=== PATIENT | female | born 1965 | race Caucasian/White ===

== ENCOUNTER → 2016-09-30 | Outpatient (CLI) | payer BC ==
[2016-09-30 09:50] LABS: Basophils % (A) 0 %; CHCM 33.3; Eosinophils # (A) 0.1 k/uL (0-0.7); Eosinophils % (A) 2 %; HCT 43.5 % (34.0-46.0); HDW 2.34; HGB 14.3 gm/dL (11.4-16.0); Luc % (Auto) 2; Lymphocytes % (A) 24 %; MCH 29.7 pg (25.0-35.0); MCHC 32.8 g/dL (31.0-37.0); MCV 90.4 fL (80.0-100.0); Mean Platelet Volume 7.4; Monocytes # (A) 0.3 k/uL (0-1.0); Monocytes % (A) 8 %; Neutrophils # (A) 2.7 k/uL (1.3-7.7); Neutrophils % (A) 64 %; RBC 4.81 m/uL (3.80-5.40); WBC 4.3 k/uL (3.8-10.6); WBC (Perox) 4.28
[2016-09-30 10:18] LABS: ALT 35 U/L (9-52); AST 25 U/L (14-36); Alkaline Phosphatase 103 U/L (38-126); Anion Gap 12 mmol/L; Blood Urea Nitrogen 13 mg/dL (7-17); Calcium 9.6 mg/dL (8.4-10.2); Carbon Dioxide 26 mmol/L (22-30); Chloride 102 mmol/L (98-107); Glucose 94 mg/dL (74-99); Non-African American GFR(MDRD) >60 (>60 ml/min/1.73 sqM); Potassium 4.8 mmol/L (3.5-5.1); Sodium 140 mmol/L (137-145); Total Bilirubin 0.4 mg/dL (0.2-1.3); Total Protein 7.4 g/dL (6.3-8.2)
== END | disposition home or self-care (01) ==
LOC: LABWHC1 09:11
PROVIDERS: ATTEND Internal Medicine Endocrinology, Diabetes & Metabolism
DX: E55.9 Vitamin D deficiency, unspecified (principal); M85.9 Disorder of bone density and structure, unspecified
CPT/HCPCS: 36415; 80053; 82306; 82523; 85025

== ENCOUNTER → 2017-10-29 | Outpatient (CLI) | payer BC, OTHER ==
[2017-10-29 11:53] LABS: Basophils % (A) 0 %; Eosinophils # (A) 0.1 k/uL (0-0.7); Eosinophils % (A) 2 %; HGB 13.6 gm/dL (11.4-16.0); Lymphocytes # (A) 1.1 k/uL (1.0-4.8); Lymphocytes % (A) 22 %; MCH 28.6 pg (25.0-35.0); MCV 92.4 fL (80.0-100.0); Mean Platelet Volume 7.7; Monocytes # (A) 0.4 k/uL (0-1.0); Monocytes % (A) 7 %; Neutrophils # (A) 3.5 k/uL (1.3-7.7); Neutrophils % (A) 67 %; Platelet Count 208 k/uL (150-450); RBC 4.76 m/uL (3.80-5.40); RDW 13.4 % (11.5-15.5); WBC 5.2 k/uL (3.8-10.6)
[2017-10-29 12:00] LABS: ALT 27 U/L (9-52); AST 28 U/L (14-36); Albumin 4.3 g/dL (3.5-5.0); Alkaline Phosphatase 109 U/L (38-126); Anion Gap 11 mmol/L; Blood Urea Nitrogen 14 mg/dL (7-17); Calcium 9.6 mg/dL (8.4-10.2); Carbon Dioxide 27 mmol/L (22-30); Chloride 103 mmol/L (98-107); Cholesterol 231 mg/dL (<200); Glucose 90 mg/dL (74-99); HDL Cholesterol 68 mg/dL (40-60); LDL Cholesterol,Calculated 137 mg/dL (0-99); Potassium 4.5 mmol/L (3.5-5.1); Sodium 141 mmol/L (137-145); Total Bilirubin 0.3 mg/dL (0.2-1.3); Total Protein 7.3 g/dL (6.3-8.2); Triglycerides 131 mg/dL (<150)
[2017-10-29 16:47] LABS: Vitamin D 25 Hydroxy 23.9 ng/mL (30.0-100.0)
[2017-10-29 17:07] LABS: Hepatitis C IgG Antibody Non-Reactive (Non-Reactive)
== END | disposition home or self-care (01) ==
LOC: LABWHC1 11:21
PROVIDERS: ATTEND Internal Medicine Endocrinology, Diabetes & Metabolism
DX: Z00.00 Encounter for general adult medical examination without abnormal findings (principal); E55.9 Vitamin D deficiency, unspecified; M81.8 Other osteoporosis without current pathological fracture; Z13.9 Encounter for screening, unspecified
CPT/HCPCS: 36415; 80053; 80061; 82306; 85025; 86803

== ENCOUNTER → 2018-11-15 | Outpatient (CLI) | payer BC, OTHER ==
--- NOTE | 2018-11-16 03:40 | CT ---
EXAMINATION TYPE: CT chest wo con DATE OF EXAM: 11/15/2018 COMPARISON: Correlation old spine MRI 08/04/2010 HISTORY: 53-year-old female cough, SOB, asthma, interstitial pulmonary disease TECHNIQUE: Contiguous axial scanning of the chest without IV contrast. Coronal and sagittal reconstru ctions performed. CT DLP: 691 mGycm Automated exposure control for dose reduction was used. FINDINGS: There is a nodule within the lateral right breast measuring 1 cm and a couple nodules in the left claudia ast measuring 1.3 and 0.6 cm. Further mammographic evaluation is recommended. Heart normal size without pericardial effusion. Minimal coronary vessel calcifications are present. Borderline ectasia ascending aorta 3.5 cm. There is variant direct takeoff of the left vertebral bhavesh ry directly from the aortic arch and mild atherosclerotic arch calcifications. Evaluation of the lungs shows some strandy atelectasis peripheral left base and inferior lingula. The re are trace subpleural reticulations within the right middle lobe. No consolidation or pleural effus ion. Visualized upper abdomen shows no gross abnormality. Bones: Some scattered prominent endplate Schmorl's nodes are demonstrated. Focal sclerosis within the T3 vertebral body has a nonaggressive appearance and had some corresponding abnormality on the patie nt's old MRI of 08/04/2010 suggesting a hemangioma. IMPRESSION: 1. TRACE SUBPLEURAL RETICULATIONS IN THE RIGHT MIDDLE LOBE COULD REPRESENT SOME MINIMAL FIBROTIC COPELAND GES/INTERSTITIAL SCARRING. NO OTHER FINDINGS OF INTERSTITIAL LUNG DISEASE ELSEWHERE IN THE LUNGS. 2. BILATERAL BREAST NODULARITY. RECOMMEND DIAGNOSTIC MAMMOGRAPHIC EVALUATION IF THE PATIENT IS NOT UN DERGOING ROUTINE SCREENING.
== END | disposition home or self-care (01) ==
LOC: RADCTMAIN 16:46
PROVIDERS: ATTEND Preventive Medicine Preventive Medicine/Occupational Environmental Medicine
DX: J84.9 Interstitial pulmonary disease, unspecified (principal)
CPT/HCPCS: 71250

== ENCOUNTER → 2018-12-04 | Outpatient (CLI) | payer BC, OTHER ==
[2018-12-04 15:32] LABS: Basophils % (A) 0 %; Eosinophils # (A) 0.1 k/uL (0-0.7); Eosinophils % (A) 1 %; HGB 13.3 gm/dL (11.4-16.0); Lymphocytes % (A) 18 %; MCH 29.4 pg (25.0-35.0); MCHC 32.4 g/dL (31.0-37.0); MCV 90.7 fL (80.0-100.0); Mean Platelet Volume 7.6; Monocytes # (A) 0.4 k/uL (0-1.0); Monocytes % (A) 7 %; Neutrophils # (A) 4.1 k/uL (1.3-7.7); Neutrophils % (A) 72 %; Platelet Count 182 k/uL (150-450); RBC 4.52 m/uL (3.80-5.40); RDW 14.9 % (11.5-15.5); WBC 5.7 k/uL (3.8-10.6)
[2018-12-04 15:43] LABS: Appearance,Urine Clear (Clear); Bilirubin,Urine Negative (Negative); Blood,Urine Trace (Negative); Color,Urine Light Yellow; Glucose,Urine (UA) Negative (Negative); Ketones,Urine Negative (Negative); Leukocyte Esterase,Urine Negative (Negative); Mucus,Urine Rare /hpf; Nitrite,Urine Negative (Negative); Protein,Urine Negative (Negative); RBC,Urine 2 /hpf (0-5); Squamous Epithelial Cell,Urine 1 /hpf (0-4); Urobilinogen,Urine <2.0 mg/dL (<2.0); WBC,Urine 2 /hpf (0-5)
[2018-12-04 23:37] LABS: Albumin 4.4 g/dL (3.80-4.90); Albumin/Globulin Ratio 2.32 (1.60-3.17); Anion Gap 9.9 mmol/L (4.00-12.00); Calcium 9.3 mg/dL (8.7-10.3); Carbon Dioxide 25.1 mmol/L (21.6-31.8); Globulin 1.9 g/dL (1.6-3.3); LDL Cholesterol,Calculated 133.8 mg/dL (0.0-131.0); Total Bilirubin 0.4 mg/dL (0.2-1.2); Total Protein 6.3 g/dL (6.2-8.2); VLDL Calculation 29.2 mg/dL (5.00-40.00)
== END ==
LOC: LABWHC1 14:44
PROVIDERS: ATTEND Internal Medicine Endocrinology, Diabetes & Metabolism
DX: Z00.00 Encounter for general adult medical examination without abnormal findings (principal); E55.9 Vitamin D deficiency, unspecified; M81.8 Other osteoporosis without current pathological fracture
CPT/HCPCS: 36415; 80053; 80061; 81001; 82306; 85025

== ENCOUNTER → 2020-03-31 | Outpatient (CLI) | payer BC, OTHER ==
[2020-03-31 21:33] LABS: African American GFR (CKD) 118.9 (60.0-200.0); Anion Gap 9.9 mmol/L (4.00-12.00); BUN/Creat Ratio 21.67 Ratio (12.00-20.00); Carbon Dioxide 24.1 mmol/L (21.6-31.8); Non-African American GFR(CKD) 102.6 (60.0-200.0); Potassium 4.7 mmol/L (3.5-5.5)
== END | disposition home or self-care (01) ==
LOC: LABWHC1 07:33
PROVIDERS: ATTEND Internal Medicine
DX: I25.10 Atherosclerotic heart disease of native coronary artery without angina pectoris (principal); I77.811 Abdominal aortic ectasia; M85.9 Disorder of bone density and structure, unspecified; E55.9 Vitamin D deficiency, unspecified
CPT/HCPCS: 36415; 80048; 82306; 82523; 93005

== ENCOUNTER → 2020-04-28 | Outpatient (CLI) | payer BC, OTHER ==
--- NOTE | 2020-04-28 16:21 | CT ---
EXAMINATION TYPE: CT chest wo con DATE OF EXAM: 04/28/2020 COMPARISON: 11/15/2018 HISTORY: Interstitial pulmonary disease. CT DLP: 966.5 mGycm, Automated exposure control for dose reduction was used. CONTRAST: None TECHNIQUE: Axial images were obtained at 1 mm thick sections at 10 mm intervals. This will limit po rtions of the examination which may not be visualized within the [id number]. Images were obtained in the prone and supine views. FINDINGS: Portion of the thyroid visualized is normal. No suspicious lung nodules or focal infiltrat es are present. Previously described reticulation in the right middle lobe is not evident. There is a small density felt to be related to some volume averaging anterior left lung. Nodules not excluded. Series 8 image 8. Volume averaging cannot be clearly ruled in or out with high-resolution C T chest because of volume averaging and skipped areas. No enlarged mediastinal or hilar adenopathy is evident. The ascending aorta diameter at the level o f the main pulmonary artery is 3.7 cm. The main pulmonary artery diameter at the bifurcation is 3.1 cm. Mild coronary artery calcifications present. Limited CT sections are obtained through the upper abdomen. Abdomen is essentially unremarkable. IMPRESSIONS: 1. Previously described nodularity within right middle lobe is not evident on the current exam. 2. Small nodule may be some volume averaging in the anterior left upper lung field. Standard CT chest could further evaluate this area.
== END | disposition home or self-care (01) ==
LOC: RADCTMAIN 15:31
PROVIDERS: ATTEND Preventive Medicine Preventive Medicine/Occupational Environmental Medicine
DX: J84.9 Interstitial pulmonary disease, unspecified (principal)
CPT/HCPCS: 71250

== ENCOUNTER 2020-12-02 14:34 | Emergency (ER) | payer BC, OTHER ==
[2020-12-02 17:04] VITALS: TEMP 98.4
[2020-12-02] MEDS ORDERED: HYDROcodone/APAP 5-325MG 1 EACH TAB PO STA (17:16)
--- NOTE | 2020-12-02 18:02 | XR ---
EXAMINATION TYPE: XR ankle complete RT DATE OF EXAM: 12/02/2020 COMPARISON: NONE HISTORY: Ankle pain TECHNIQUE: 3 views FINDINGS: There is transverse fracture of the distal fibula. There is lateral soft tissue swelling. T here is plantar calcaneal spurring. Ankle mortise is anatomic. IMPRESSION: Acute nondisplaced fracture of the lateral malleolus. Soft tissue swelling.
--- NOTE | 2020-12-02 18:21 | ED ---
Lower Extremity Injury HPI - General Chief Complaint: Extremity Injury, Lower Stated Complaint: RT ankle injury Time Seen by Provider: 12/02/20 17:06 Source: patient Mode of arrival: wheelchair Limitations: no limitations - History of Present Illness Initial Comments: 55-year-old female presents to the emergency department with chief complaint of an ankle fracture. Patient reports last night she was walking and had an inversion injury to the right ankle. States the pain is sharp, 7/10 and exacerbated with weightbearing and alleviated at rest. Reports early this morning she went to an urgent care and x-ray was obtained. Sometime afterwards they called her to advise her that she needs to go to emergency Department for splinting because she has an ankle fracture. She denies any numbness or tingling. Does report ecchymosis and swelling to the lateral malleolus of the right ankle. She does report a little bit of range of motion due to pain. Denies taking medication to alleviate the symptoms. - Related Data Home Medications Medication Instructions Recorded Confirmed Budesonide/Formoterol Fumarate 2 puff INHALATION RT-BID 08/24/16 12/02/20 [Symbicort 80-4.5 Mcg Inhaler] Montelukast [Singulair] 10 mg PO DAILY 08/24/16 12/02/20 Raloxifene [Evista] 60 mg PO DAILY 08/24/16 12/02/20 modafiniL [Provigil] 400 mg PO DAILY 08/24/16 12/02/20 Ascorbic Acid [Vitamin C] 1,000 mg PO DAILY 12/02/20 12/02/20 Ergocalciferol [Vitamin D2 (1250 1,250 mcg PO TREVINO 12/02/20 12/02/20 Mcg = 33791 Iu)] Rosuvastatin Calcium [Crestor] 5 mg PO Q48H 12/02/20 12/02/20 Vitamin B Complex 1 cap PO DAILY 12/02/20 12/02/20 Allergies Allergy/AdvReac Type Severity Reaction Status Date / Time cephalexin [From Keflex] AdvReac Rash/Hives Verified 12/02/20 17:37 Penicillins AdvReac Rash/Hives Verified 12/02/20 17:37 Review of Systems ROS Statement: Those systems with pertinent positive or pertinent negative responses have been documented in the HPI. ROS Other: All systems not noted in ROS Statement are negative. Past Medical History Past Medical History: Asthma, Cancer, Fibromyalgia Additional Past Medical History / Comment(s): Neuropathy; Narcolepsy; Breast CA History of Any Multi-Drug Resistant Organisms: None Reported Past Surgical History: Breast Surgery Additional Past Surgical History / Comment(s): Br Lumpectomy and Lymph node removal; Urethral enlargement; Mole removed L eyelid; Colonoscopies Past Anesthesia/Blood Transfusion Reactions: No Reported Reaction Past Psychological History: Bipolar Smoking Status: Never smoker Past Alcohol Use History: Occasional Past Drug Use History: None Reported - Past Family History Mother Family Medical History: Cancer General Exam Limitations: no limitations General appearance: alert, in no apparent distress, obese Head exam: Present: atraumatic, normocephalic, normal inspection Eye exam: Present: normal appearance, PERRL, EOMI Pupils: Present: normal accommodation ENT exam: Present: normal exam, normal oropharynx, mucous membranes moist, TM's normal bilaterally, normal external ear exam Neck exam: Present: normal inspection, full ROM. Absent: tenderness Respiratory exam: Present: normal lung sounds bilaterally. Absent: respiratory distress Cardiovascular Exam: Present: regular rate, normal rhythm, normal heart sounds Extremities exam: Present: tenderness (Lateral malleolus tenderness of the right ankle.), normal capillary refill, other (Palpable DP and PT bilaterally. Sensation intact in bilateral lower extremities.). Absent: normal inspection (Ecchymosis and swelling of the lateral malleolus of the right ankle.), full ROM (Limited range of motion her right ankle due to pain), pedal edema, joint swelling, calf tenderness Back exam: Present: normal inspection, full ROM Neurological exam: Present: alert, oriented X3 Psychiatric exam: Present: normal affect, normal mood Skin exam: Present: warm, dry, intact, normal color Course Vital Signs 12/02/20 16:59 Temperature 98.4 F Pulse Rate 75 Respiratory 20 Rate Blood Pressure 169/102 O2 Sat by Pulse 97 Oximetry Procedures - Orthopedic Splinting/Casting Injury #1 Side: right Lower Extremity Injury Location: ankle Lower Extremity Immobilizer: posterior splint, stirrup splint, Miah wrap, synthetic pre-padded splint Other Orthopedic Equipment: crutches Medical Decision Making - Medical Decision Making 55-year-old female presents to emergency Department with a chief complaint of an ankle fracture. On physical examination, she is neurovascularly intact but has tenderness limited range of motion in the right ankle. Patient was given [place] for pain per her request. X-ray revealed a nondisplaced lateral malleolus fracture of the right ankle. No midfoot or fifth metatarsal tenderness. I applied a posterior splint with ankle stirrups. Patient was given Tylenol 3 for pain. Advised to follow-up with construction specialist tomorrow. Strict return parameters were thoroughly discussed with patient was resting agreeable. Case discussed with Dr. Jay. Disposition Clinical Impression: Ankle fracture, right, Fractured lateral malleolus Disposition: HOME SELF-CARE Condition: Stable Instructions (If sedation given, give patient instructions): Ankle Fracture (DC) Additional Instructions: Follow-up with construction specialist. Return to emergency department if symptoms worsen. Is patient prescribed a controlled substance at d/c from ED?: No Referrals: Marlo Santoro MD [Primary Care Provider] - 1-2 days Yossi Villatoro PAC [PHYSICIAN MANAGED SERVICES CONSULTANT] - 1-2 days Time of Disposition: 18:20
[2020-12-02] MEDS ORDERED: ACET/COD 300 MG/30 MG STARTER PACK 6 TAB BTL PO STA (18:25)
[2020-12-02 18:48] VITALS: BP 143/88; PULSE 67; RESP 18
== END 2020-12-02 19:01 | disposition home or self-care (01) ==
LOC: EC 14:34
DX: S82.61XA Displaced fracture of lateral malleolus of right fibula, initial encounter for closed fracture (principal); J45.909 Unspecified asthma, uncomplicated; M79.7 Fibromyalgia; F31.9 Bipolar disorder, unspecified; G47.419 Narcolepsy without cataplexy; G62.9 Polyneuropathy, unspecified; Z79.51 Long term (current) use of inhaled steroids; Z85.3 Personal history of malignant neoplasm of breast; Z88.0 Allergy status to penicillin; Z88.1 Allergy status to other antibiotic agents; Z79.899 Other long term (current) drug therapy; X50.1XXA Overexertion from prolonged static or awkward postures, initial encounter; Y93.01 Activity, walking, marching and hiking; Y92.89 Other specified places as the place of occurrence of the external cause
CPT/HCPCS: 29515; 99283

== ENCOUNTER → 2021-03-03 | Outpatient (CLI) | payer BC, OTHER ==
[2021-03-03 20:10] LABS: HCT 43.3 % (37.2-46.3); HGB 13.8 g/dL (12.0-15.0); MCH 29.1 pg (27.0-32.0); MCHC 31.9 g/dL (32.0-37.0); MCV 91.4 fL (80.0-97.0); Mean Platelet Volume 12.4 fL (9.5-12.2); Platelet Count 213 X 10*3/uL (140-440); RBC 4.74 X 10*6/uL (4.10-5.20); RDW 13.7 % (11.5-14.5); WBC 6.69 X 10*3/uL (4.50-10.00)
[2021-03-03 21:01] LABS: African American GFR (CKD) 112.3 (60.0-200.0); Albumin 4.5 g/dL (3.80-4.90); Albumin/Globulin Ratio 1.8 (1.60-3.17); Anion Gap 8.9 mmol/L (4.00-12.00); BUN/Creat Ratio 18.57 Ratio (12.00-20.00); Calcium 9.3 mg/dL (8.7-10.3); Carbon Dioxide 26.1 mmol/L (21.6-31.8); Chol/HDL Ratio 3.21; Globulin 2.5 g/dL (1.6-3.3); Non-African American GFR(CKD) 96.9 (60.0-200.0); Potassium 4.2 mmol/L (3.5-5.5); Total Bilirubin 0.3 mg/dL (0.2-1.2)
== END | disposition home or self-care (01) ==
LOC: LABWHC1 12:28
PROVIDERS: ATTEND Internal Medicine
DX: Z00.00 Encounter for general adult medical examination without abnormal findings (principal); M81.8 Other osteoporosis without current pathological fracture; E55.9 Vitamin D deficiency, unspecified; E78.2 Mixed hyperlipidemia
CPT/HCPCS: 36415; 80053; 80061; 82306; 85027

== ENCOUNTER → 2021-06-16 | Outpatient (CLI) | payer BC, OTHER ==
--- NOTE | 2021-06-16 14:34 | CT ---
EXAMINATION TYPE: CT chest wo con DATE OF EXAM: 06/16/2021 COMPARISON: Chest CT November 15, 2018 HISTORY: Chest congestion. History of breast cancer. CT DLP: 373 mGycm. Automated Exposure Control for Dose Reduction was Utilized. TECHNIQUE: CT scan of the thorax is performed without IV contrast. FINDINGS: LUNGS: The lungs remain predominantly clear, there is no concerning new greater than 5 mm parenchymal mass or nodule identified. Mild by basilar linear scarring There is no pleural effusion or pneumot horax seen. The tracheobronchial tree is patent. MEDIASTINUM: Lack of IV contrast is noted to limit evaluation for mediastinal and especially hilar ad enopathy. There are no definitive new greater than 1 cm mediastinal lymph nodes. Prominent main pulmo nary artery at 3.2 cm redemonstrated suggesting underlying pulmonary artery hypertension. No cardiome stacey. Trace pericardial effusion is seen. OTHER: Sclerosis involving the inferior T3 vertebra redemonstrated. Prominent Schmorl nodes involving superior T9 and L1 endplates again seen. Stable 1.2 cm round lesion posterior left breast axial imag e 19. IMPRESSION: No suspicious new acute pulmonary process. No significant change from 2019 CT.
--- NOTE | 2021-06-16 14:37 | CT ---
EXAMINATION TYPE: CT sinus wo con DATE OF EXAM: 06/16/2021 COMPARISON: None HISTORY: Sinus congestion CT DLP: 410.1 mGycm. Automated Exposure Control for Dose Reduction was Utilized. TECHNIQUE: CT scan of the sinuses is performed without contrast, axial images are obtained, coronal r eformatted images are also reviewed. FINDINGS: There is moderate right-sided maxillary sinus mucosal thickening and soft tissue attenuatio n. There is occlusion of the ostiomeatal complex. The left ostiomeatal complex is patent. Minimal mucosal thickening involving the inferior maxillary a ntrum on the left. Nasal septal deviation noted. . Mild mucosal thickening involving the ethmoid air cells on the right. Mastoid air cells are clear. Orbits are symmetric intracranial structures are symmetric. Nasopharynx and oropharynx symmetric. Par otid glands have a normal appearance. IMPRESSION: 1. Moderate right maxillary sinusitis which may have an acute component and results in occlusion of t he ostiomeatal complex. 2. Mild chronic right ethmoidal sinusitis.
== END | disposition home or self-care (01) ==
LOC: RADCTMAIN 13:59
PROVIDERS: ATTEND Internal Medicine Hematology & Oncology
DX: J32.0 Chronic maxillary sinusitis (principal); J32.2 Chronic ethmoidal sinusitis; Z85.3 Personal history of malignant neoplasm of breast
CPT/HCPCS: 70486; 71250

== ENCOUNTER → 2021-12-07 | Outpatient (CLI) | payer BC, OTHER ==
[2021-12-07 23:15] LABS: HCT 42.3 % (37.2-46.3); HGB 13.4 g/dL (12.0-15.0); MCH 28.5 pg (27.0-32.0); MCHC 31.7 g/dL (32.0-37.0); MCV 89.8 fL (80.0-97.0); Mean Platelet Volume 11.4 fL (9.5-12.2); NRBC Per 100 WBC 0 /100 WBCS (0.0-0.0); Platelet Count 242 X 10*3/uL (140-440); RBC 4.71 X 10*6/uL (4.10-5.20); RDW 13.5 % (11.5-14.5); WBC 7.08 X 10*3/uL (4.50-10.00)
[2021-12-07 23:23] LABS: ALT 28 U/L (8-44); AST 27 U/L (13-35); African American GFR (CKD) 117.1 (60.0-200.0); Albumin 4.5 g/dL (3.8-4.9); Albumin/Globulin Ratio 1.87 (1.60-3.17); Alkaline Phosphatase 129 U/L (41-126); BUN/Creat Ratio 20.43 Ratio (12.00-20.00); Blood Urea Nitrogen 12.3 mg/dL (9.0-27.0); Calcium 9.7 mg/dL (8.7-10.3); Carbon Dioxide 24.2 mmol/L (20.0-27.5); Chloride 102 mmol/L (96-109); Chol/HDL Ratio 2.81 Ratio; Globulin 2.4 g/dL (1.6-3.3); Glucose 88 mg/dL (70-110); LDL Cholesterol,Calculated 98.7 mg/dL (0.0-131.0); Non-African American GFR(CKD) 101.1 (60.0-200.0); Potassium 4.6 mmol/L (3.5-5.5); Sodium 139 mmol/L (135-145); Total Bilirubin <0.15 mg/dL (0.30-1.20); Total Protein 6.9 g/dL (6.2-8.2)
== END | disposition home or self-care (01) ==
LOC: LABWHC1 14:13
PROVIDERS: ATTEND Family Medicine
DX: Z00.00 Encounter for general adult medical examination without abnormal findings (principal)
CPT/HCPCS: 36415; 80053; 80061; 85027

== ENCOUNTER 2022-08-13 12:23 | Day surgery (SDC) | payer BC, OTHER ==
[~2022-08-13 12:23] MED LIST: ALBUTEROL NEB (CONC) 2.5 MG/0.5 ML INHALATION ONE; ATROPINE SULFATE 0.4 MG/ML 1 ML VIAL IM ONE; LACTATED RINGERS 1,000 ML IV SCH; LIDOCAINE 1% (10MG/ML) FOR IV START INTRADERMA PRN; LIDOCAINE 2% (PF) 20 MG/ML 5 ML VIAL INHALATION ONE; LIDOCAINE VISCOUS 300 MG/15 ML CUP MUCOUS MEM ONE
[2022-08-13 12:44] VITALS: RESP 16; TEMP 97.1
[2022-08-13] MEDS ORDERED: fentaNYL (PF) 50 MCG/ML 2 ML AMP ONE (13:52)
[2022-08-13] MEDS ORDERED: LIDOCAINE 2% INJ 20 MG/ML (2 ML VIAL) ONE (13:52)
[2022-08-13] MEDS ORDERED: PROPOFOL 10 MG/ML 20 ML VIAL IV ONE (13:52)
[2022-08-13] MEDS ORDERED: LIDOCAINE 2% INJ 20 MG/ML INTRATRACH ONE (14:12)
[2022-08-13 14:32] VITALS: BP 147/84; PULSE 83
--- NOTE | 2022-08-13 20:56 | PCN ---
PROCEDURE NOTE This is a Pulmonary/Critical Care procedure Note. PROCEDURES PERFORMED: Bronchoscopy, airway examination, therapeutic lavage, and bronchoalveolar lavage. PREOPERATIVE DIAGNOSES: Retained secretions and bronchiectasis, chronic cough. POSTOPERATIVE DIAGNOSES: Retained secretions and bronchiectasis, chronic cough. There were informed consent and universal time-out. The patient's procedure took place in room #1 [facility]. ANESTHESIA PROVIDED: General anesthesia for this patient. DESCRIPTION OF PROCEDURE: After the patient was adequately anesthetized and sedated, the bronchoscope was inserted through the right nostril. It passed through the right nasopharynx into the oropharynx. The hypopharynx was identified and topicalized. The hypopharyngeal structures including anterior commissure, true cords, false cords, arytenoids, piriform sinuses - right and left, valleculae, and epiglottis all appeared normal. After topicalization, the bronchoscope was pushed through the glottic opening into the trachea. The trachea appeared normal. Tracheal mahogany was sharp. The right and left mainstem were topicalized. The right upper lobe and its 3 segments, right middle lobe and its 2 segments, right lower lobe and its 5 segments, the lingula and its 2 segments, the left upper lobe proper and its 2 segments, and the left lower lobe and its 4 segments all had similar findings of diffuse moderate bronchitis. There was some mucosal friability. Thick secretions were noted throughout. They were suctioned with some difficulty. There was no dominant mass or tumor. The bronchoscope was then wedged into the right middle lobe, and the BAL took place. 35 mL of fluid was recovered from the right middle lobe. The patient tolerated the procedure well. The bronchoscope was withdrawn, and the patient will be recovered. MMODL / IJN: [id number] /
[2022-08-14 02:17] LABS: Appearance,BF Hazy
== END 2022-08-13 14:54 | disposition home or self-care (01) ==
LOC: ORWHC2ENDO 12:23
PROVIDERS: ATTEND Internal Medicine Critical Care Medicine
DX: J47.9 Bronchiectasis, uncomplicated (principal); E78.5 Hyperlipidemia, unspecified; J45.909 Unspecified asthma, uncomplicated; F12.90 Cannabis use, unspecified, uncomplicated; M79.7 Fibromyalgia; G62.9 Polyneuropathy, unspecified; Z87.891 Personal history of nicotine dependence; Z88.0 Allergy status to penicillin; Z88.1 Allergy status to other antibiotic agents; Z85.3 Personal history of malignant neoplasm of breast; Z79.899 Other long term (current) drug therapy; Z79.51 Long term (current) use of inhaled steroids; Z90.89 Acquired absence of other organs; Z98.890 Other specified postprocedural states; Z98.82 Breast implant status; Z82.61 Family history of arthritis; Z82.49 Family history of ischemic heart disease and other diseases of the circulatory system; Z82.5 Family history of asthma and other chronic lower respiratory diseases; Z81.8 Family history of other mental and behavioral disorders; Z80.3 Family history of malignant neoplasm of breast; Z80.8 Family history of malignant neoplasm of other organs or systems
CPT/HCPCS: 31624; 88108; 88305; 89050; 87252; 87070; 87205; 87116; 87102; 87077; 87186; 87206; J2001 ×2; J0461; J3010; J2704